=== PATIENT | male | born 1985 | race Caucasian/White ===

== ENCOUNTER 2017-04-29 22:58 | Emergency (ER) | payer OTHER ==
[2017-04-30] MEDS ORDERED: IBUPROFEN 600 MG TABLET PO ONE (00:45)
--- NOTE | 2017-04-30 01:19 | ER Document Report ---
ED General - General Chief Complaint: Other Stated Complaint: LEFT TESTICLE PAIN Time Seen by Provider: 04/30/17 00:42 Notes: Patient is a 32-year-old male with a past medical history who presents with 3 days of left testicular swelling and discomfort. States that he noticed an increasing size to the left testicle with an associated dull, mild, constant aching pain to the area. This has been getting progressively worse over the past 3 days. He denies any history of similar symptoms in the past. Denies any trauma to the area. No dysuria or penile discharge. He has not seen his primary care doctor regarding today's concerns. He denies any fever, vomiting, abdominal pain or weight loss. Past Medical History - General Information source: Patient - Social History Smoking Status: Never Smoker Frequency of alcohol use: None Drug Abuse: None Lives with: Spouse/Significant other Family History: Reviewed & Not Pertinent Renal/ Medical History: Denies: Hx Peritoneal Dialysis Review of Systems - Review of Systems Notes: Constitutional: Negative for fever. HENT: Negative for sore throat. Eyes: Negative for visual changes. Cardiovascular: Negative for chest pain. Respiratory: Negative for shortness of breath. Gastrointestinal: Negative for abdominal pain, vomiting or diarrhea. Genitourinary: Negative for dysuria. Positive for left testicle pain Musculoskeletal: Negative for back pain. Skin: Negative for rash. Neurological: Negative for headaches, weakness or numbness. 10 point ROS negative except as marked above and in HPI. Physical Exam - Vital signs Vitals: Temp Pulse Resp BP Pulse Ox 98.5 F 64 16 117/70 97 04/29/17 23:29 04/29/17 23:29 04/29/17 23:29 04/29/17 23:29 04/29/17 23:29 Interpretation: Normal Notes: PHYSICAL EXAMINATION: GENERAL: Well-appearing, well-nourished and in no acute distress. HEAD: Atraumatic, normocephalic. EYES: Pupils equal round and reactive to light, extraocular movements intact, sclera anicteric, conjunctiva are normal. ENT: nares patent, oropharynx clear without exudates. Moist mucous membranes. NECK: Normal range of motion, supple without lymphadenopathy LUNGS: Breath sounds clear to auscultation bilaterally and equal. No wheezes rales or rhonchi. HEART: Regular rate and rhythm without murmurs ABDOMEN: Soft, nontender, normoactive bowel sounds. : Left testicle is lying approximately 2 cm lower than the right testicle. Cremasteric reflex is absent on the left and present on the right. There is a firmness to the posterior superior aspect of the left testicle and the testicle is appreciably larger than the right. EXTREMITIES: Normal range of motion, no pitting or edema. No cyanosis. NEUROLOGICAL: No focal neurological deficits. Moves all extremities spontaneously and on command. PSYCH: Normal mood, normal affect. SKIN: Warm, Dry, normal turgor, no rashes or lesions noted. Course - Re-evaluation Re-evalutation: 04/30/17 01:19 Patient presents with signs and symptoms worrisome for possible testicular cancer. Alternative diagnosis would be a possible acute epididymitis given the location of the swelling although the firmness would be unusual for that presentation. Will proceed with urinalysis and scrotal ultrasound and reassess 04/30/17 03:02 Urinalysis is consistent with acute epididymitis. Ultrasound likewise confirmed this diagnosis. Will treat with ceftriaxone, azithromycin, and an outpatient course of cephalexin. At this time will discharge with return precautions and follow-up recommendations. Verbal discharge instructions given a the bedside and opportunity for questions given. Medication warnings reviewed. Patient is in agreement with this plan and has verbalized understanding of return precautions and the need for primary care follow-up in the next 24-72 hours. - Vital Signs Vital signs: Temp Pulse Resp BP Pulse Ox 98.5 F 64 16 117/70 97 04/29/17 23:29 04/29/17 23:29 04/29/17 23:29 04/29/17 23:29 04/29/17 23:29 - Laboratory Laboratory results interpreted by me: 04/30/17 00:56 Urine Protein 100 H Urine Blood MODERATE H Ur Leukocyte Esterase LARGE H Discharge - Discharge Clinical Impression: Epididymitis Condition: Good Disposition: HOME, SELF-CARE Instructions: Epididymitis ([facility]) Additional Instructions: The swelling in your testicles is due to a condition called epididymitis which is an acute infection of the structure that sits on the top your testicle. You have been given antibiotics here in the emergency department and will be going home on additional antibiotics that your need to complete. Please follow-up with a urologist at your earliest ability. Return to emergency department for any additional concerns you may have including fever, vomiting, worsening of your pain, or any other symptoms that are worrisome to you. Prescriptions: Cephalexin Monohydrate [Keflex 500 mg Capsule] 500 mg PO Q6H 7 Days capsule
[2017-04-30 01:28] LABS: AMORPHOUS SEDIMENT,URINE TRACE /HPF; APPEARANCE,URINE CLOUDY; BILIRUBIN,URINE NEGATIVE (NEGATIVE); GLUCOSE, URINE NEGATIVE (NEGATIVE); KETONES,URINE NEGATIVE (NEGATIVE); LEUKOCYTE ESTERASE,URINE LARGE (NEGATIVE); NITRITE,URINE NEGATIVE (NEGATIVE); PROTEIN,URINE 100 mg/dL (NEGATIVE); URINE SPECIFIC GRAVITY 1.024; UROBILINOGEN,URINE NEGATIVE mg/dL (<2.0)
--- NOTE | 2017-04-30 02:55 | RADIOLOGY REPORT (SQ) ---
EXAM DESCRIPTION: U/S SCROTUM W/DOPPLER COMPLETED DATE/TIME: 04/30/2017 2:36 am REASON FOR STUDY: Left testicular swelling COMPARISON: None. TECHNIQUE: Static and realtime archibald scale imaging of the scrotum and testes. Selected color Doppler and spectral images recorded to document blood flow. LIMITATIONS: Patient's body habitus. FINDINGS: RIGHT: TESTICLE: Measures 4.0 x 2.5 x 4.5 cm. Normal echotexture. Normal blood flow. No mass. EPIDIDYMIS: The epididymal head measures 0.5 x 0.4 x 0.5 cm, limited visualization due to body habitu s. HYDROCELE OR VARICOCELE: Small hydrocele with mobile debris. No varicocele noted. HERNIA OR EXTRA-TESTICULAR MASS: No. LEFT: TESTICLE: Measures 3.2 x 2.7 x 5.0 cm. Normal echotexture. Normal blood flow. No mass. Incidental 1 mm calcific focus noted at the left testicle. EPIDIDYMIS: The epididymal head measures 1.0 x 1.1 x 1.1 cm. The epididymal tail is enlarged measuri ng 1.6 x 1.8 x 1.4 cm, with increased vascularity on Doppler images. HYDROCELE OR VARICOCELE: Moderate hydrocele. No varicocele noted. HERNIA OR EXTRA-TESTICULAR MASS: No. IMPRESSION: No sonographic evidence for testicular torsion. Enlarged left epididymis with increased vascularity, probably due to acute epididymitis. Moderate left-sided hydrocele. Small right-sided hydrocele with internal debris, suggestive of chronicity. TECHNICAL DOCUMENTATION: JOB ID: [id number] [employer]- All Rights Reserved
[2017-04-30] MEDS ORDERED: AZITHROMYCIN 250 MG TABLET PO ONE (03:01)
[2017-04-30] MEDS ORDERED: CEFTRIAXONE INJ 250 MG VIAL IM ONE (03:01)
[2017-04-30] MEDS ORDERED: LIDOCAINE 1% INJ-PF (10 MG/ML) 30 ML SDV INFIL ONE (03:01)
[2017-04-30 04:30] VITALS: BP 100/61
== END 2017-04-30 04:30 | disposition home or self-care (01) ==
LOC: ER 22:58
DX: N45.1 Epididymitis (principal); N50.812 Left testicular pain; N50.89 Other specified disorders of the male genital organs
CPT/HCPCS: 99284; 96372; 87086; 81001; 76870; 93976; J3490; J0696; 36415